=== PATIENT | female | born 1985 | race Caucasian/White ===

== ENCOUNTER 2024-03-28 06:40 | Day surgery (SDC) | payer SELFPAY ==
[2024-03-28 07:03] VITALS: RESP 16
[2024-03-28] MEDS ORDERED: ceFAZolin SODIUM 1 GM VIAL ONE ×2 (07:14→09:01)
[2024-03-28] MEDS ORDERED: GENTAMICIN SO4 80 MG/2 ML VIAL ONE (07:14)
[2024-03-28] MEDS ORDERED: PROPOFOL 20 ML ONE ×2 (07:51→10:19)
[2024-03-28] MEDS ORDERED: MIDAZOLAM HCL 2 MG/2 ML SINGLE DOSE VIAL ONE (07:52)
[2024-03-28] MEDS ORDERED: ROCURONIUM BROMIDE 50 MG/5 ML SYRINGE ONE (07:52)
[2024-03-28] MEDS ORDERED: ePHEDrine SULFATE 50 MG/1 ML AMPULE ONE (07:53)
[2024-03-28] MEDS ORDERED: POLYMYXIN B SULFATE 500,000 UNIT VIAL ONE (07:58)
[2024-03-28] MEDS ORDERED: BUPIVACAINE HCL/PF 0.5% (5MG/ML) 10 ML VIAL ONE (08:01)
[2024-03-28] MEDS ORDERED: HYDROmorphone HCL/PF 1 MG/ML VIAL ONE (08:20)
[2024-03-28] MEDS ORDERED: NEOSTIGMINE METHYLSULFATE 0.5 MG/1 ML - 10 ML MDV ONE (09:00)
[2024-03-28] MEDS ORDERED: ONDANSETRON 4 MG/2 ML VIAL ONE (09:01)
[2024-03-28] MEDS ORDERED: GLYCOPYRROLATE 0.2 MG/1 ML VIAL ONE (09:01)
[2024-03-28] MEDS ORDERED: KETOROLAC TROMETHAMINE 30 MG/1 ML VIAL ONE (09:01)
[2024-03-28] MEDS ORDERED: DEXAMETHASONE SOD PHOSPHATE 4 MG/1 ML VIAL ONE (09:01)
[2024-03-28] MEDS ORDERED: oxyCODONE HCL 5 MG TABLET PO PRN ×3 (10:57→11:05)
[2024-03-28] MEDS ORDERED: PROMETHAZINE HCL 25 MG/1 ML VIAL IVPB PRN (10:57)
[2024-03-28] MEDS ORDERED: ONDANSETRON 4 MG/2 ML VIAL IVPUSH PRN (10:57)
[2024-03-28] MEDS ORDERED: ACETAMINOPHEN 1000 MG/100 ML BAG IVPB ONE (10:58)
[2024-03-28] MEDS ORDERED: LACTATED RINGERS SOLUTION 1,000 ML IV SCH ×2 (11:00→11:15)
[2024-03-28] MEDS ORDERED: ACETAMINOPHEN INJECTION 100 ML IVPB ONE (11:12)
[2024-03-28] MEDS: ACETAMINOPHEN 1000 MG/100 ML BAG IVPB ONE (11:15)
[2024-03-28 12:00] VITALS: TEMP 97.3
[2024-03-28 12:53] VITALS: BP 100/61; PULSE 69
[2024-03-28] MEDS ORDERED: ONDANSETRON 4 MG/2 ML VIAL IVPB PRN (16:59)
== END 2024-03-28 12:50 | disposition home or self-care (01) ==
LOC: FASU 06:40
PROVIDERS: ATTEND Plastic Surgery
PROC: 0H0V0JZ Alteration of Bilateral Breast with Synthetic Substitute, Open Approach (ICD-10-PCS; principal; 2024-03-28 08:37)
DX: N64.82 Hypoplasia of breast (principal)
CPT/HCPCS: 19325; L8600; 81025; 94760; J0131